=== PATIENT | male | born 1960 | race African-American/Black ===

== ENCOUNTER 2024-02-05 22:57 | Emergency (ER) | payer OTHER, SELFPAY ==
[2024-02-05 23:11] VITALS: BP 170/89; PULSE 70; RESP 18; TEMP 36.9; O2SAT 97; BMI 34.0
== END 2024-02-06 00:34 | disposition left against medical advice (07) ==
PROVIDERS: Emergency Provider Emergency Medicine; PCP Internal Medicine
DX: I10 Essential (primary) hypertension (principal); Z53.21 Procedure and treatment not carried out due to patient leaving prior to being seen by health care provider
CPT/HCPCS: 99281